=== PATIENT | male | born 1985 | race Caucasian/White ===

== ENCOUNTER 2017-11-19 14:19 | Emergency (ER) | payer SELFPAY ==
[2017-11-19] MEDS ORDERED: Ondansetron ODT 4 MG TAB ONE (14:36)
[2017-11-19] MEDS ORDERED: Ondansetron HCl/PF 4 MG/2 ML Vial ONE (16:27)
== END 2017-11-19 17:05 | disposition home or self-care (01) ==
LOC: ERS 14:19
DX: R11.2 Nausea with vomiting, unspecified (principal); F41.9 Anxiety disorder, unspecified; F32.9 Major depressive disorder, single episode, unspecified; F17.210 Nicotine dependence, cigarettes, uncomplicated
CPT/HCPCS: 96361; 96374; 99406; J2405; Q0162

== ENCOUNTER 2019-06-15 12:00 | Emergency (ER) | payer SELFPAY ==
--- NOTE | 2019-06-15 13:00 | RAD ---
PA CHEST: Date: 06/15/19 HISTORY: Pain upper chest from injury. FINDINGS: Lungs are clear. No pneumothorax or effusion. Heart and mediastinum unremarkable. Osseous structures appear intact. IMPRESSION: Unremarkable PA chest. POS: [facility]
== END 2019-06-15 14:17 | disposition home or self-care (01) ==
LOC: ERS 12:00
DX: S29.011A Strain of muscle and tendon of front wall of thorax, initial encounter (principal); F41.9 Anxiety disorder, unspecified; F32.9 Major depressive disorder, single episode, unspecified; F17.210 Nicotine dependence, cigarettes, uncomplicated; Z79.899 Other long term (current) drug therapy; X50.9XXA Other and unspecified overexertion or strenuous movements or postures, initial encounter
CPT/HCPCS: 71045

== ENCOUNTER 2020-04-23 17:25 | Emergency (ER) | payer OTHER, SELFPAY ==
[2020-04-23 18:06] LABS: #Basophils 0.1 thou/uL (0.0-0.2); #Eosinphils 0.2 thou/uL (0.0-0.7); #Lymphocytes 2.3 thou/uL (1.20-3.40); #Monocytes 0.6 thou/uL (0.11-0.59); #Neutrophils 2.2 thou/uL (1.40-6.50); %Basophils 1.8 % (0.0-1.0); %Eosinophils 4.2 % (0.0-10.0); %Monocytes 10.5 % (0.0-10.0); %Neutrophils 40.6 % (42.0-75.0); Hemoglobin 15.4 g/dL (14.0-18.0); Mean Corpuscular HGB CONC 33.6 g/dL (32.0-36.0); Mean Corpuscular Hemoglobin 32.2 pg (27.0-31.0); Mean Corpuscular Volume 95.9 fL (78.0-98.0); Mean Platelet Volume 6.8 fL (7.4-10.4); Platelet Count 201 thou/uL (130-400); Red Blood Cell (RBC) Count 4.79 mill/uL (4.70-6.10); White Blood Cell (WBC) Count 5.3 thou/uL (4.8-10.8)
[2020-04-23 18:14] LABS: Bilirubin Negative (Negative); Blood, Urine Negative (Negative); Clarity Clear (Clear); Glucose, Urine (Dipstick) Normal (Negative); Leukocyte Negative Leu/uL (Negative); Nitrite Negative (Negative); Protein, Urine (Dipstick) Negative (Neg-Trace); Urobilinogen Normal mg/dL (Less than 2)
[2020-04-23 18:25] LABS: Benzodiazepine Screen Detected (NotDetected); Medtox Reader # READER 4
[2020-04-23 18:26] LABS: Amphetamine Not Detected (NotDetected); Barbiturates Screen Not Detected (NotDetected); Cocaine Metabolite Screen Not Detected (NotDetected); Medtox Control Line Valid? VALID (VALID); Methadone Not Detected (NotDetected); Methamphetamine Not Detected (NotDetected); Opiate Screen Not Detected (NotDetected); Oxycodone Screen Not Detected (NotDetected); Phencyclidine (PCP) Not Detected (NotDetected); THC/Cannabinoid Screen Not Detected (NotDetected); Tricyclic Screen Not Detected (NotDetected)
[2020-04-23 18:37] LABS: ALT (SGPT) 66 U/L (8-55); AST (SGOT) 73 U/L (5-34); Albumin 4.4 g/dL (3.5-5.0); Alcohol 214 mg/dL (Less than 10); Alkaline Phosphatase 117 U/L (40-110); Anion Gap 14 mmol/L (10-20); BUN (Urea Nitrogen) 8 mg/dL (8.9-20.6); Bilirubin, Total 0.3 mg/dL (0.2-1.2); Calc. Creatinine Clearance 0 mL/min (70-130); Calcium 9.5 mg/dL (7.8-10.44); Carbon Dioxide 29 mmol/L (22-29); Chloride 102 mmol/L (98-107); Estimated GFR-MDRD Greater than 90; Globulin 3.6 g/dL (2.4-3.5); Glucose 93 mg/dL (70-105); Potassium 4.3 mmol/L (3.5-5.1); Sodium 141 mmol/L (136-145)
== END 2020-04-23 19:25 | disposition home or self-care (01) ==
LOC: ERS 17:25
DX: F10.10 Alcohol abuse, uncomplicated (principal); Y90.7 Blood alcohol level of 200-239 mg/100 ml; F41.9 Anxiety disorder, unspecified; F32.9 Major depressive disorder, single episode, unspecified; F17.210 Nicotine dependence, cigarettes, uncomplicated; Z79.899 Other long term (current) drug therapy
CPT/HCPCS: 80053; 80306; 80307; 81003; 85025; 99284

== ENCOUNTER 2022-02-23 19:11 | Inpatient (IN) | payer OTHER ==
[2022-02-23 19:50] LABS: Hemoglobin 15.8 g/dL (14.0-18.0); Mean Corpuscular HGB CONC 32.7 g/dL (32.0-36.0); Mean Platelet Volume 8.7 fL (7.4-10.4); Platelet Count 173 thou/uL (130-400); RBC Distribution Width 12.6 % (11.5-14.5); Red Blood Cell (RBC) Count 4.63 mill/uL (4.70-6.10); White Blood Cell (WBC) Count 6.5 thou/uL (4.8-10.8)
[2022-02-23 20:03] LABS: CRP (Inflammatory) 19.67 mg/dL (= or < 0.5)
[2022-02-23 20:09] LABS: Band 25 % (5-11); Eosinophils 2 % (0-10); Lymphocytes 28 % (21-51); MDiff Complete? YES; Macrocytosis SLIGHT = 6-15 cells (100X) (0-5/hpf); Monocytes 15 % (0-10); Neutrophil 27 % (42-75); Platelet Morphology Comment Appears Adequate
[2022-02-23 20:11] LABS: Acetaminophen Less than 10.0 mcg/mL (10.0-30.0); Alcohol 184 mg/dL (Less than 10); Salicylate Less than 8.0 mg/dL (15.0-30.0)
[2022-02-23 20:45] LABS: Bacteria/HPF None Seen HPF (None Seen); Bilirubin Negative (Negative); Blood, Urine Trace (Negative); Clarity Clear (Clear); Glucose, Urine (Dipstick) Normal (Negative); Ketone, Urine Negative (Negative); Leukocyte Negative Leu/uL (Negative); Mucous/LPF 1+ LPF (<2+); Nitrite Negative (Negative); Protein, Urine (Dipstick) 20 mg/dL (Neg-Trace); RBC/HPF 0-3 HPF (0-3); Specific Gravity, Urine 1.015 (1.002-1.036); Squamous Epithelial None Seen HPF (0-3); Urobilinogen Normal mg/dL (Less than 2); WBC/HPF 0-3 HPF (0-3)
[2022-02-23 20:57] LABS: Amphetamine Not Detected (NotDetected); Barbiturates Screen Not Detected (NotDetected); Benzodiazepine Screen Detected (NotDetected); Cocaine Metabolite Screen Not Detected (NotDetected); Methadone Not Detected (NotDetected); Methamphetamine Not Detected (NotDetected); Opiate Screen Not Detected (NotDetected); Oxycodone Screen Not Detected (NotDetected); Phencyclidine (PCP) Not Detected (NotDetected); THC/Cannabinoid Screen Not Detected (NotDetected); Tricyclic Screen Not Detected (NotDetected)
[2022-02-23] MEDS ORDERED: methylPREDNISolone Sod Succ/PF 125 MG/2 ML VIAL ONE (20:59)
[2022-02-23] MEDS ORDERED: cefTRIAXone\\ROCEPHIN 2 GM VIAL ONE (21:03)
[2022-02-23 21:19] LABS: Albumin 3.4 g/dL (3.5-5.0)
[2022-02-23 21:21] LABS: Calcium 8.7 mg/dL (7.8-10.44); Chloride 101 mmol/L (98-107); Potassium 4.1 mmol/L (3.5-5.1); Sodium 136 mmol/L (136-145)
[2022-02-23 21:22] LABS: Globulin 3.5 g/dL (2.4-3.5); Glucose 106 mg/dL (70-105); Protein, Total 6.9 g/dL (6.0-8.3)
[2022-02-23 21:23] LABS: Anion Gap 17 mmol/L (10-20); Carbon Dioxide 22 mmol/L (22-29)
[2022-02-23 21:24] LABS: Bilirubin, Total 0.9 mg/dL (0.2-1.2)
[2022-02-23 21:25] LABS: Alkaline Phosphatase 128 U/L (40-110); Calc. Creatinine Clearance 0 mL/min (70-130)
[2022-02-23 21:26] LABS: BUN (Urea Nitrogen) 8 mg/dL (8.9-20.6)
[2022-02-23 21:27] LABS: AST (SGOT) 78 U/L (5-34)
[2022-02-23 21:28] LABS: ALT (SGPT) 102 U/L (8-55)
[2022-02-23] MEDS ORDERED: Azithromycin 500 MG in Sodium Chloride 0.9% 250 ML 250 ML IVPB SCH (21:30)
[2022-02-23 21:49] LABS: SARS-CoV-2 NAA Rapid Test Not Detected (NotDetected)
[2022-02-23] MEDS ORDERED: Loperamide HCl 2 MG CAP PO PRN ×2 (22:27)
[2022-02-23] MEDS ORDERED: Senokot S 8.6-50 MG TAB PO PRN (22:27)
[2022-02-23] MEDS ORDERED: Lorazepam 1 MG TAB PO PRN (22:27)
[2022-02-23] MEDS ORDERED: Ondansetron ODT 4 MG TAB PO PRN ×2 (22:27)
[2022-02-23] MEDS ORDERED: Sodium Chloride 0.65% Nasal 44 ML BOT EA NARE PRN (22:27)
[2022-02-23] MEDS ORDERED: Ondansetron PF 4 MG/2 ML Vial IVP PRN (22:27)
[2022-02-23] MEDS ORDERED: Acetaminophen 325 MG TAB PO PRN (22:27)
[2022-02-23] MEDS ORDERED: Lorazepam 2 MG/ML VIAL IM PRN (22:27)
[2022-02-23] MEDS ORDERED: Acetaminophen 500 MG TAB PO PRN (22:27)
[2022-02-23] MEDS ORDERED: Acetaminophen 650 MG Suppository PR PRN ×2 (22:27)
[2022-02-23] MEDS ORDERED: hydrALAZINE 20 MG/ML VIAL SLOW IVP PRN (22:27)
[2022-02-23] MEDS ORDERED: Bisacodyl 5 MG TAB PO PRN (22:27)
[2022-02-23] MEDS ORDERED: Labetalol HCl 100 MG/20 ML VIAL SLOW IVP PRN (22:27)
[2022-02-23] MEDS ORDERED: Enoxaparin Sodium 40 MG/0.4 ML SYRINGE SC SCH (22:30)
[2022-02-23] MEDS ORDERED: Electrolyte Replacement Protocol 1 EACH FS SCH (22:30)
[2022-02-23 23:12] LABS: INR-International Normal Ratio 0.9; PTT 31.5 sec (22.9-36.1); Prothrombin Time 12.6 sec (12.0-14.7)
[2022-02-23 23:20] LABS: Lactic Acid 2.9 mmol/L (0.5-2.2)
[2022-02-23 23:21] LABS: Band 15 % (5-11); Hemoglobin 14.7 g/dL (14.0-18.0); Lymphocytes 28 % (21-51); MDiff Complete? YES; Mean Corpuscular HGB CONC 32.7 g/dL (32.0-36.0); Mean Corpuscular Hemoglobin 34.4 pg (27.0-31.0); Mean Platelet Volume 7.8 fL (7.4-10.4); Monocytes 13 % (0-10); Neutrophil 43 % (42-75); Platelet Count 140 thou/uL (130-400); Platelet Morphology Comment Appears Adequate; Promyelocytes 1 % (0-0); RBC Distribution Width 12.3 % (11.5-14.5); RBC Morphology Normal; Red Blood Cell (RBC) Count 4.26 mill/uL (4.70-6.10); White Blood Cell (WBC) Count 3.6 thou/uL (4.8-10.8)
[2022-02-23 23:25] LABS: Magnesium 1.7 mg/dL (1.6-2.6); Phosphorus 2.8 mg/dL (2.3-4.7)
[2022-02-23 23:42] LABS: HIV (1/2) Antibody/Antigen Non-Reactive (NonReactive); HIV 1/2 INDEX 0.11 S/CO (<1.00); Hep C IgG Ab Non-Reactive (NonReactive)
[2022-02-23] MEDS ORDERED: Enoxaparin Sodium 60 MG/0.6 ML SYRINGE ONE (23:42)
[2022-02-23] MEDS ORDERED: Lorazepam 1 MG TAB ONE (23:43)
[2022-02-23] MEDS: Lorazepam 1 MG TAB PO SCH (23:49)
[2022-02-23] MEDS ORDERED: Ipratropium Oral Inhaler INH PRN (23:57)
[2022-02-23] MEDS ORDERED: Albuterol 200 PUFF (6.7GM INHALER) INH PRN (23:57)
[2022-02-24] MEDS: Thiamine HCl 200 MG/2 ML VIAL SLOW IVP SCH ×2 (00:48→23:14)
[2022-02-24] MEDS ORDERED: Magnesium 2 GM/50 ML(in water) 2 GM in Premix Bag 1 BAG IVPB SCH (07:00)
[2022-02-24 09:19] LABS: Lactic Acid 1.1 mmol/L (0.5-2.2)
[2022-02-24 09:21] LABS: ALT (SGPT) 83 U/L (8-55); AST (SGOT) 57 U/L (5-34); Alkaline Phosphatase 105 U/L (40-110); Anion Gap 11 mmol/L (10-20); BUN (Urea Nitrogen) 10 mg/dL (8.9-20.6); Bilirubin, Total 0.8 mg/dL (0.2-1.2); Calc. Creatinine Clearance 0 mL/min (70-130); Calcium 8.5 mg/dL (7.8-10.44); Carbon Dioxide 27 mmol/L (22-29); Chloride 104 mmol/L (98-107); Globulin 3.5 g/dL (2.4-3.5); Glucose 150 mg/dL (70-105); Potassium 3.8 mmol/L (3.5-5.1); Protein, Total 6.5 g/dL (6.0-8.3); Sodium 138 mmol/L (136-145)
[2022-02-24] MEDS: Nicotine 14 MG PATCH TD SCH ×2 (09:22→23:46)
[2022-02-24] MEDS: Lorazepam 1 MG TAB PO SCH ×4 (09:22→23:16)
[2022-02-24] MEDS: Famotidine 20 MG TAB PO SCH ×2 (09:25→21:04)
[2022-02-24] MEDS: Folic Acid 1 MG TAB PO SCH (09:25)
[2022-02-24] MEDS: Multivit, Therapeutic 1 TAB PO SCH (09:25)
[2022-02-24] MEDS: Buprenorphine 8mg/Naloxone 2mg per 1 FILM PO SCH ×2 (09:26→16:27)
[2022-02-24 09:51] LABS: Hemoglobin 13.3 g/dL (14.0-18.0); Mean Corpuscular HGB CONC 34.5 g/dL (32.0-36.0); Mean Corpuscular Hemoglobin 36.3 pg (27.0-31.0); Mean Platelet Volume 8.1 fL (7.4-10.4); Platelet Count 115 thou/uL (130-400); RBC Distribution Width 12.2 % (11.5-14.5); Red Blood Cell (RBC) Count 3.67 mill/uL (4.70-6.10); White Blood Cell (WBC) Count 3.2 thou/uL (4.8-10.8)
[2022-02-24 10:00] LABS: Band 35 % (5-11); Lymphocytes 19 % (21-51); MDiff Complete? YES; Monocytes 8 % (0-10); Neutrophil 39 % (42-75); Platelet Morphology Comment Appears Decreased; Polychromasia SLIGHT = 2-3 cells (100X) (0-2/hpf)
[2022-02-24] MEDS ORDERED: Magnesium Sulfate 2 GM, Admixture Fee 1 EACH in Sodium Chloride 0.9% 100 ML IVPB SCH (10:00)
[2022-02-24 10:57] LABS: Syphilis Antibody Nonreactive (Nonreactive); Syphilis Antibody Index 0.08 S/CO (<1.00 Non-Reactive)
[2022-02-24] MEDS ORDERED: Cepastat Lozenges 1 LOZ PO PRN (12:15)
[2022-02-24 19:28] LABS: Legionella Urinary Ag Negative (Negative)
[2022-02-24 19:28] LABS: Strep pneumo Urine Ag NEGATIVE (NEGATIVE)
[2022-02-24] MEDS ORDERED: Buprenorphine 8mg/Naloxone 2mg per 1 FILM PO SCH (21:00)
[2022-02-24] MEDS: Enoxaparin Sodium 40 MG/0.4 ML SYRINGE SC SCH (21:03)
[2022-02-24] MEDS ORDERED: Lorazepam 1 MG TAB PO PRN (22:27)
[2022-02-24] MEDS: Ibuprofen 200 MG TAB PO PRN (23:16)
[2022-02-25] MEDS: Lorazepam 1 MG TAB PO SCH ×3 (04:46→16:07)
[2022-02-25 06:17] LABS: Hemoglobin 12.6 g/dL (14.0-18.0); Mean Corpuscular HGB CONC 32.8 g/dL (32.0-36.0); Mean Corpuscular Hemoglobin 34.1 pg (27.0-31.0); Mean Platelet Volume 7.9 fL (7.4-10.4); Platelet Count 113 thou/uL (130-400); RBC Distribution Width 12.1 % (11.5-14.5); White Blood Cell (WBC) Count 4.1 thou/uL (4.8-10.8)
[2022-02-25 06:36] LABS: Anion Gap 11 mmol/L (10-20); BUN (Urea Nitrogen) 17 mg/dL (8.9-20.6); Calc. Creatinine Clearance 0 mL/min (70-130); Calcium 8.4 mg/dL (7.8-10.44); Carbon Dioxide 27 mmol/L (22-29); Chloride 103 mmol/L (98-107); Glucose 95 mg/dL (70-105); Sodium 138 mmol/L (136-145)
[2022-02-25] MEDS ORDERED: Potassium Chloride 20 MEQ TAB PO SCH (06:45)
[2022-02-25] MEDS ORDERED: Magnesium Oxide 400 MG TAB PO SCH (08:00)
[2022-02-25] MEDS: Famotidine 20 MG TAB PO SCH ×2 (08:03→20:25)
[2022-02-25] MEDS: Multivit, Therapeutic 1 TAB PO SCH (08:03)
[2022-02-25] MEDS: Folic Acid 1 MG TAB PO SCH (08:03)
[2022-02-25] MEDS: Cyanocobalamin (Vitamin B-12) 1,000 MCG TAB PO SCH (08:03)
[2022-02-25] MEDS: Buprenorphine 8mg/Naloxone 2mg per 1 FILM PO SCH (09:25)
[2022-02-25] MEDS ORDERED: Buprenorphine 8mg/Naloxone 2mg per 1 FILM PO SCH ×2 (16:45→21:00)
[2022-02-25] MEDS: Ibuprofen 200 MG TAB PO PRN (17:39)
[2022-02-25] MEDS: Enoxaparin Sodium 40 MG/0.4 ML SYRINGE SC SCH (20:25)
[2022-02-25] MEDS ORDERED: cefTRIAXone\\ROCEPHIN 1 GM in Sodium Chloride 0.9% 100 ML IVPB SCH (21:00)
[2022-02-25] MEDS ORDERED: cloNIDine 0.1 MG TAB PO SCH (21:00)
[2022-02-25] MEDS ORDERED: Buprenorphine 8mg/Naloxone 2mg per 1 FILM SL SCH (21:00)
[2022-02-25] MEDS ORDERED: Mirtazapine 30 MG TAB PO SCH (21:00)
[2022-02-25] MEDS: Thiamine HCl 200 MG/2 ML VIAL SLOW IVP SCH (21:33)
[2022-02-25] MEDS: Lorazepam 0.5 MG TAB PO SCH (21:33)
[2022-02-25] MEDS ORDERED: Azithromycin 500 MG in Sodium Chloride 0.9% 250 ML 250 ML IVPB SCH (22:00)
[2022-02-25] MEDS ORDERED: Lorazepam 1 MG TAB PO PRN (22:27)
[2022-02-26] MEDS: Nicotine 14 MG PATCH TD SCH (01:43)
[2022-02-26] MEDS: Lorazepam 0.5 MG TAB PO SCH ×2 (05:15→10:37)
[2022-02-26] MEDS: Folic Acid 1 MG TAB PO SCH (07:57)
[2022-02-26] MEDS: Famotidine 20 MG TAB PO SCH (07:58)
[2022-02-26] MEDS: Multivit, Therapeutic 1 TAB PO SCH (07:58)
[2022-02-26] MEDS: Cyanocobalamin (Vitamin B-12) 1,000 MCG TAB PO SCH (07:58)
[2022-02-26 08:24] VITALS: BP 145/105; TEMP 98.8
[2022-02-26] MEDS ORDERED: Buprenorphine 8mg/Naloxone 2mg per 1 FILM PO SCH (09:00)
[2022-02-26] MEDS: Ibuprofen 200 MG TAB PO PRN (09:30)
[2022-02-26] MEDS ORDERED: Polyethylene Glycol 3350 17 GM Packet PO PRN (11:24)
[2022-02-26] MEDS ORDERED: Lorazepam 0.5 MG TAB PO PRN (22:27)
[2022-02-26] MEDS ORDERED: Thiamine 100 MG TAB PO SCH (22:30)
[2022-03-01 22:09] LABS: Mycoplasma pneumoniae IgG AB 186 U/mL (0-99); Mycoplasma pneumoniae IgM AB Less than 770 U/mL (0-769)
== END 2022-02-26 14:38 | disposition home or self-care (01) | DRG 867 ==
LOC: ERS 19:11 → ERHOLD 22:32 → T4-B 02-24 05:34
PROVIDERS: ADMIT Internal Medicine; ATTEND Internal Medicine
PROC: 8E0ZXY6 Isolation (ICD-10-PCS; principal; 2022-02-23)
DX: A19.9 Miliary tuberculosis, unspecified (principal); B39.2 Pulmonary histoplasmosis capsulati, unspecified; J96.01 Acute respiratory failure with hypoxia; J15.9 Unspecified bacterial pneumonia; E87.2 Acidosis; F10.239 Alcohol dependence with withdrawal, unspecified; F10.20 Alcohol dependence, uncomplicated; M41.9 Scoliosis, unspecified; G89.4 Chronic pain syndrome; F17.210 Nicotine dependence, cigarettes, uncomplicated; F10.229 Alcohol dependence with intoxication, unspecified; Y90.6 Blood alcohol level of 120-199 mg/100 ml; K76.0 Fatty (change of) liver, not elsewhere classified; J04.0 Acute laryngitis; D75.89 Other specified diseases of blood and blood-forming organs; Z80.42 Family history of malignant neoplasm of prostate; Z82.5 Family history of asthma and other chronic lower respiratory diseases; Z88.8 Allergy status to other drugs, medicaments and biological substances
CPT/HCPCS: 36415; 71045; 71275; 76705; 80048; 80053; 80306; 80307; 81003; 81015; 82550; 83605; 83735; 84100; 84145; 85025; 85027; 85379; 85610; 85730; 86140; 86480; 86780; 86803; 87040; 87070; 87116; 87205; 87206; 87385; 87389; 87449; 87633; 87804; 87899; 93005; 94640; 96365; 96367; 96375; J0456; J0696; J1650; J2930; J3411; J3475; J3490; J7050; J7620; U0002

== ENCOUNTER 2022-05-13 15:17 | Emergency (ER) | payer OTHER | END 2022-05-13 17:33 | disposition home or self-care (01) | LOC: ERS 15:17 | DX: S76.011A Strain of muscle, fascia and tendon of right hip, initial encounter (principal); I10 Essential (primary) hypertension; M41.9 Scoliosis, unspecified; Z79.899 Other long term (current) drug therapy; X50.9XXA Other and unspecified overexertion or strenuous movements or postures, initial encounter ==

== ENCOUNTER 2023-09-12 16:36 | Emergency (ER) | payer OTHER | END 2023-09-12 19:05 | disposition left against medical advice (07) | LOC: ERS 16:36 | DX: Z53.21 Procedure and treatment not carried out due to patient leaving prior to being seen by health care provider (principal) ==